=== PATIENT | female | born 1980 | race Hispanic/Latino ===

== ENCOUNTER 2017-07-04 01:46 | Inpatient (IN) | payer BC ==
[2017-07-04 02:20] VITALS: BMI 30.7
[2017-07-04 02:42] LABS: Amnisure Test RUPTURE DETECTED (No Rupture)
[2017-07-04 02:43] LABS: Amnisure Internal Control QC ACCEPTABLE (ACCEPTABLE)
--- NOTE | 2017-07-04 02:51 | PDOC.LDHP ---
Labor and Delivery H&P Chief complaint: loss of fluid HPI: Patient of Dr beltrán here at 39 weeks (...36 yo) with EDC 07/06, c/o possible SROM and some contractions. Was 3cm in office recently. Goof FM, no other issues. Review of systems: completed and as per HPI Current gestational age (weeks): 39 (5 days) Due date: 07/06/17 Grav: 2 Para: 1 (prior ) Current complications: none Abnormal US findings: No Current medications: pre-kiran vitamins Previous surgical history: none Allergies/Adverse Reactions: Allergies Allergy/AdvReac Type Severity Reaction Status Date / Time No Known Allergies Allergy Verified 08/09/12 10:14 - Physical Exam Vital signs reviewed and normal: yes General: NAD Heart: RRR Lungs: CTAB Abdomen: gravid Extremeties: no edema FHT: category 1 [place] contractions every: one every 8 minutes - Vaginal Exam cm dilated: 3 Effacement: 75% Station: -1 - Assessment Latent labor at term. Possible srom. Positive amnisure but bloody sample...will perform SSE - Plan Plan: observation in L&D (Sterile spec...admit if positive. Obs in L&D.)
[2017-07-04] MEDS ORDERED: NS / Oxytocin 40 units/1000ml 1,000 ML IV PRN (03:13)
[2017-07-04] MEDS ORDERED: HYDROcodone/Acetaminophen 5/325 mg Tablet PO PRN ×2 (03:13)
[2017-07-04] MEDS ORDERED: Lidocaine 1% (PF) 30 ML VIAL SC PRN (03:13)
[2017-07-04] MEDS ORDERED: Promethazine HCl 25 MG/ML VIAL IM PRN ×2 (03:13→09:44)
[2017-07-04] MEDS ORDERED: Ibuprofen 800 MG TAB PO PRN (03:13)
--- NOTE | 2017-07-04 03:13 | PDOC.EVN ---
Event Note - Event Note Event Note: Sterile Spec exam performed by me at 0256: Valsalva and cough performed with no large amount of fluid seen. No fluid per os. SSE was unremarkable. HOWEVER, on interview, she gives a good history for possible SROM at 0040...was sleeping with large amount of fluid per os (not urine). States leakage after that as well. Altough SSE unremarkable, I will DX ROM by HX and the positive ...I have discussed this with the patient. Admit. If no spont labor/contractions by 0600...start augmentation. Cat 1 on strip. No real contractions. DX: PROM
[2017-07-04] MEDS ORDERED: NS w/ Oxytocin 10 units 500 ML IV SCH ×2 (03:15→06:00)
[2017-07-04] MEDS: Lactated Ringer's 1,000 ML IV SCH ×2 (03:25→09:40)
[2017-07-04 03:49] LABS: Hemoglobin 12.6 g/dL (12.0-16.0); Mean Corpuscular HGB CONC 34.9 g/dL (32.0-36.0); Mean Corpuscular Hemoglobin 31.6 pg (27.0-31.0); Mean Corpuscular Volume 90.5 fl (81.0-99.0); Mean Platelet Volume 8.9 fL (7.4-10.4); Platelet Count 235 thou/uL (130-400); RBC Distribution Width 14.3 % (11.5-14.5); Red Blood Cell (RBC) Count 3.99 mill/uL (4.20-5.40); White Blood Cell (WBC) Count 9.1 thou/uL (4.8-10.8)
[2017-07-04 04:29] LABS: HBSAg Index 0.41 S/CO (0-0.99); HIV (1/2) Antibody/Antigen Non-Reactive (NonReactive); HIV 1/2 INDEX 0.06 S/CO (<1.00); Hep B Surf Ag Non-Reactive S/CO (NonReactive)
[2017-07-04 05:12] LABS: Syphilis Antibody Nonreactive (Nonreactive); Syphilis Antibody Index 0.05 S/CO (<1.00 Non-Reactive)
[2017-07-04] MEDS ORDERED: Morphine 4 MG/ML VIAL ONE (08:52)
[2017-07-04] MEDS ORDERED: Bupivacaine 0.5% 20 ML, fentaNYL Citrate/PF 400 MCG in Sodium Chloride 0.9% 72 ML EPIDURAL SCH (09:00)
[2017-07-04] MEDS ORDERED: Ondansetron HCl/PF 4 MG/2 ML Vial IVP SCH (09:00)
[2017-07-04] MEDS ORDERED: Morphine 4 MG/ML VIAL SLOW IVP SCH (09:00)
[2017-07-04] MEDS ORDERED: DISCONTINUE ALL PREVIOUS NARCOTICS FS SCH (09:00)
[2017-07-04] MEDS ORDERED: Acetaminophen 325 MG TAB PO PRN (09:44)
[2017-07-04] MEDS ORDERED: diphenhydrAMINE 50 MG/ML VIAL IVP PRN (09:44)
[2017-07-04] MEDS ORDERED: ePHEDrine/0.9% NaCl/PF SYRINGE 50 mg/10 ml SLOW IVP PRN (09:44)
[2017-07-04] MEDS ORDERED: Eucerin (Mineral Oil/Petrolatum,White) 30 gm Jar TOP PRN (09:44)
[2017-07-04] MEDS ORDERED: Ondansetron HCl/PF 4 MG/2 ML Vial IVP PRN (09:44)
[2017-07-04] MEDS ORDERED: Naloxone HCl 0.4 mg/ml Vial IVP PRN ×2 (09:44)
[2017-07-04] MEDS ORDERED: Lactated Ringer's 500 ML IV PRN (09:44)
[2017-07-04] MEDS ORDERED: Communication Order-Pharmacy FS SCH (09:45)
[2017-07-04] MEDS ORDERED: Fentanyl 4mcg/Marcaine 0.1% Cassette 100 ML EPIDURAL SCH (09:45)
[2017-07-04] MEDS ORDERED: NS / Oxytocin 40 units/1000ml 1,000 ML ONE (13:43)
[2017-07-04] MEDS ORDERED: Adacel (T-DAP) 0.5 ML VIAL IM ONE (14:18)
[2017-07-04] MEDS ORDERED: Bisacodyl 10 MG SUPP PR PRN (14:18)
[2017-07-04] MEDS ORDERED: Milk Of Magnesia 30 ML UDCUP PO PRN (14:18)
[2017-07-04] MEDS ORDERED: Preparation H Ointment 28 GM TUBE PR PRN (14:18)
[2017-07-04] MEDS ORDERED: traMADol HCl 50 MG TAB PO PRN ×2 (14:18)
[2017-07-04] MEDS ORDERED: Benzocaine/Menthol 20-0.5% 60 ML CAN TOP PRN (14:18)
[2017-07-04] MEDS ORDERED: diphenhydrAMINE 25 MG CAP PO PRN (14:18)
--- NOTE | 2017-07-04 14:20 | PDOC.OPDEL ---
OB Operative/Delivery Note Delivery Dr/Surgeon: Joya Pre-Delivery Diagnosis: active labor Procedure/Post Delivery Dx: spontaneous vaginal delivery Weeks gestation: 39 Anesthesia: epidural - Findings A Sex: female - 1 min: 9 - 5 min: 9 - Additional Findings/Plan Placenta delivered: spontaneous Repaired Obstetrical Laceration: 1st degree Estimated blood loss: 200ml Post delivery plan: routine recovery
[2017-07-04] MEDS ORDERED: Misoprostol 200 MCG TAB VAG SCH (14:30)
[2017-07-04] MEDS ORDERED: NS / Oxytocin 40 units/1000ml 1,000 ML IV SCH (14:30)
[2017-07-04] MEDS: Ferrous Sulfate 325 MG TAB PO SCH (17:21)
[2017-07-04] MEDS: Docusate Calcium (SURFAK) 240 MG CAP PO SCH (21:40)
[2017-07-04] MEDS: Ibuprofen 800 MG TAB PO SCH (21:40)
[2017-07-05] MEDS: Ibuprofen 800 MG TAB PO SCH ×3 (06:28→21:26)
--- NOTE | 2017-07-05 07:48 | PRG ---
DATE OF SERVICE: 07/05/2017 HISTORY OF PRESENT ILLNESS: The patient is a 36-year-old female, G2, now P2, day #1, stat us post a term spontaneous vaginal delivery with Dr. Hinson. The patient today reports that she is t olerating p.o., voiding on her own, having decreased lochia and ambulating. She has some concerns ab out the baby's secretions. PHYSICAL EXAMINATION: VITAL SIGNS: Today, blood pressure is 115/58, temperature 98.2, pulse is 75, respiratory rate of 20. GENERAL: She appears to be in no acute distress. She is alert and oriented, cooperative and pleasan t to interact with. HEENT: Head is normocephalic, atraumatic. ABDOMEN: Soft. Fundus is firm. EXTREMITIES: Nontender, nonedematous. LABORATORY DATA: Her hemoglobin is unavailable. ASSESSMENT AND PLAN: The patient is a 36-year-old day #1, status post a term spontaneous vaginal delivery. We will continue care today and anticipate discharge tomorrow. They wi ll continue to monitor the baby.
[2017-07-05] MEDS: Docusate Calcium (SURFAK) 240 MG CAP PO SCH ×2 (09:08→21:26)
[2017-07-05] MEDS: Ferrous Sulfate 325 MG TAB PO SCH ×2 (09:09→15:33)
--- NOTE | 2017-07-05 09:55 | PDOC.EVN ---
Event Note - Event Note Event Note: CTSP for 'bug bite". 36 yo LAF G2 now P2 s/p yesterday. Says bug bit her earlier this AM on inside right arm. Area examined. No redness or area c/w with bite or invenomation. Pt. reassured. All questions answered.
[2017-07-06] MEDS: Ibuprofen 800 MG TAB PO SCH (05:00)
--- NOTE | 2017-07-06 07:31 | PDOC.PP ---
Post Progress Note Post Day #: 1 PO intake tolerated: yes Flatus: yes Ambulation: yes Vital Signs (12 hours) Temp Pulse Resp BP 07/05/17 20:10 98.5 F 84 18 129/63 Weight Weight 185 lb - Physical Examination General: NAD Cardiovascular: no m/r/g, RRR Respiratory: clear to auscultation bilaterally, non-labored breathing Abdominal: + bowel sounds, lochia, no distention, appropriately TTP Result Diagrams: 07/04/17 03:13 Additional Labs: Post Labs Blood Type O POSITIVE 07/04/17 03:14 Hep Bs Antigen Non-Reactive S/CO (NonReactive) 07/04/17 03:14 - Assessment/Plan doing well post day 2 d/c home f/u in 6 weeks
[2017-07-06] MEDS: Ferrous Sulfate 325 MG TAB PO SCH (08:28)
[2017-07-06] MEDS: Docusate Calcium (SURFAK) 240 MG CAP PO SCH (08:28)
[2017-07-06 08:46] VITALS: BP 127/68; TEMP 99.1
== END 2017-07-06 11:45 | disposition home or self-care (01) | DRG 775 ==
LOC: L&D/OP 01:46 → L&D 03:09 → 3SW 16:58
PROVIDERS: ADMIT Obstetrics & Gynecology; ATTEND Obstetrics & Gynecology
PROC: 10E0XZZ Delivery of Products of Conception, External Approach (ICD-10-PCS; principal; 2017-07-04)
PROC: 0KQM0ZZ Repair Perineum Muscle, Open Approach (ICD-10-PCS; 2017-07-04)
DX: O42.02 Full-term premature rupture of membranes, onset of labor within 24 hours of rupture (principal); O70.1 Second degree perineal laceration during delivery; Z37.0 Single live birth; Z3A.39 39 weeks gestation of pregnancy
CPT/HCPCS: 51702; 84112; 85027; 86780; 86850; 86900; 86901; 87340; 87389; 90715; 99285; J2270; J2405; J3010; J3490; J7050